=== PATIENT | female | born 1945 | race Caucasian/White ===

== ENCOUNTER → 2016-07-04 | Outpatient (CLI) | payer OTHER, MEDICAID | LOC: FIMAGING 13:18 | PROVIDERS: ATTEND Family Medicine | DX: Z12.39 Encounter for other screening for malignant neoplasm of breast (principal); N63 Unspecified lump in breast | CPT/HCPCS: 76641; G0204 ==

== ENCOUNTER → 2016-07-23 | Outpatient (CLI) | payer OTHER, MEDICAID ==
[~2016-07-23] MED LIST: THROMBIN (BOVINE) 5,000 UNIT VIAL TP ONE
== END ==
LOC: FIMAGING 14:21
PROVIDERS: ATTEND Physician Assistant Medical
PROC: 0HBT3ZX Excision of Right Breast, Percutaneous Approach, Diagnostic (ICD-10-PCS; principal; 2016-07-23)
DX: D24.1 Benign neoplasm of right breast (principal)
CPT/HCPCS: 19083; G0206

== ENCOUNTER 2016-10-01 02:23 | Emergency (ER) | payer OTHER, MEDICAID ==
[2016-10-01 02:46] VITALS: TEMP 98.4
--- NOTE | 2016-10-01 03:29 | EDPHY ---
H & P Stated Complaint: cut herself shaving earlier today, wont stop bleeding Time Seen by Provider: 10/01/16 03:09 HPI/ROS: Chief Complaint: Left leg bleeding HPI: 71-year-old woman cut herself shaving her left leg 8 hours ago. Patient states continue to use since that time. She is put dressings on about a soaked through. Is not on any blood thinning medications. Does not take aspirin. No other complaints at this time. ROS: 10 point Review of Systems is negative except as noted in the HPI. Physical Exam: General: Awake, alert, no acute distress Left leg: There is in her left lateral leg a 3 x 4 cm area of active bleeding from a lacerations superficially the capillary bed. There is no surrounding erythema. Skin: No rash - Personal History Current Tetanus Diphtheria and Acellular Pertussis (TDAP): Unsure - Medical/Surgical History Hx Asthma: No Hx Chronic Respiratory Disease: No Hx Diabetes: No Hx Cardiac Disease: No Hx Renal Disease: No Hx Cirrhosis: No Hx Alcoholism: No Hx HIV/AIDS: No Hx Splenectomy or Spleen Trauma: No Other PMH: hip replacement, cholecystectomy, neuropathy, back surgery, thyroid - Social History Smoking Status: Never smoked Constitutional: Initial Vital Signs Temperature (C) 36.9 C 10/01/16 02:43 Heart Rate 78 10/01/16 02:43 Respiratory Rate 18 10/01/16 02:43 Blood Pressure 123/67 H 10/01/16 02:43 O2 Sat (%) 94 10/01/16 02:43 O2 Delivery Mode Room Air Allergies/Adverse Reactions: Wheat Containing *RETIRED-12/31/11 [Wheat Containing Prod] Allergy ( Intermediate, Verified 08/09/09 21:45) Other-Enter Comments Home Medications: Medication Instructions Recorded Synthroid 08/09/09 DULoxetine 10/01/16 Ketoconazole 2% 10/01/16 Senna-S Tablet 10/01/16 traZODone 10/01/16 Medical Decision Making Procedures: Procedure: Laceration repair. Verbal consent was obtained from the patient. The 4 mm laceration on the left leg was anesthetized in the usual fashion. The wound was irrigated, draped and explored to its base with a gloved finger. There were no deep structures involved. No tendon injury was identified. The wound was repaired with a single 5-0 Prolene horizontal mattress suture. The wound repair was uncomplicated. The procedure was performed by myself. Departure - Departure Disposition: Home, Routine, Self-Care Clinical Impression: Laceration Condition: Good Instructions: Laceration (ED), Care For Your Stitches (ED) Additional Instructions: Stitches need to be removed in about 7 days. Return to the emergency department for signs of infection including redness, pus from the wound, increasing pain. Referrals: [facility] [Other] - As per Instructions
[2016-10-01 03:37] VITALS: BP 105/75; PULSE 74; RESP 14; O2SAT 92
== END 2016-10-01 03:37 | disposition home or self-care (01) ==
PROC: 0HQLXZZ Repair Left Lower Leg Skin, External Approach (ICD-10-PCS; principal; 2016-10-01)
DX: S81.812A Laceration without foreign body, left lower leg, initial encounter (principal); W26.9XXA Contact with unspecified sharp object(s), initial encounter